=== PATIENT | male | born 1995 | race American Indian/Alaskan Native ===

== ENCOUNTER 2019-06-05 13:57 | Emergency (ER) | payer SELFPAY ==
--- NOTE | 2019-06-05 14:59 | Emergency Department Report ---
Blank Doc - Documentation Documentation: 23-year-old male that presents with right elbow pain and swelling after a fall. This initial assessment/diagnostic orders/clinical plan/treatment(s) is/are subject to change based on patient's health status, clinical progression and re- assessment by fellow clinical providers in the ED. Further treatment and workup at subsequent clinical providers discretion. Patient/guardians urged not to elope from the ED as their condition may be serious if not clinically assessed and managed. Initial orders include: 1- Patient sent to [facility] for further evaluation and treatment 2- xrays
--- NOTE | 2019-06-05 16:16 | XRay Report ---
RIGHT ELBOW, 3 VIEWS INDICATION: elbow pain and swelling. COMPARISON: None. IMPRESSION: Normal bone mineralization. No osseous abnormality or joint pathology is identified. Th ere is moderate to severe posterior soft tissue swelling at the level of the olecranon. No soft tissu e gas or foreign body. Olecranon bursitis Signer Name: Uvaldo Turner Jr, MD Signed: 06/05/2019 4:11 PM Workstation Name: [id number]
--- NOTE | 2019-06-05 17:11 | Emergency Department Report ---
Abscess Boil HPI - HPI Chief Complaint: Skin/Abscess/Foreign Body Stated Complaint: RT ELBOW ABCESS/PAIN Time Seen by Provider: 06/05/19 14:57 Duration: >1 Week (2 weeks) Location: Upper Extremity (right) Severity: Moderate History: Yes Pain, No Fever, No Purulent Drainage, No Numbness, No Foreign Body, No Previous History, No Insect Bite HPI: This is a 23-year-old -[place] male who presents to the emergency room with swelling and pain to right elbow for 2 weeks. Patient states swelling improved last week when he woke up yesterday morning he noticed increased swelling and pain. Patient reports pain with movement of right elbow. He also reports redness. He denies numbness or tingling, weakness, or injury. Home Medications: Previous Rx's Medication Instructions Recorded Last Taken Type Indomethacin 50 mg PO Q8H PRN #20 capsule 06/05/19 Unknown Rx methylPREDNISolone [Medrol 4MG 4 mg PO DAILY #1 tab.ds.pk 06/05/19 Unknown Rx DOSEPAK (21 tabs)] Allergies/Adverse Reactions: Allergies Allergy/AdvReac Type Severity Reaction Status Date / Time No Known Allergies Allergy Unverified 06/05/19 14:03 ED Review of Systems ROS: Stated complaint: RT ELBOW ABCESS/PAIN Other details as noted in HPI Constitutional: denies: chills, fever Respiratory: denies: cough, shortness of breath, wheezing Cardiovascular: denies: chest pain, palpitations Gastrointestinal: denies: abdominal pain, nausea, diarrhea Musculoskeletal: joint swelling (right elbow swelling and pain), arthralgia. denies: back pain Skin: denies: rash, lesions Neurological: denies: headache, weakness, paresthesias Psychiatric: denies: anxiety, depression ED Past Medical Hx - Past Medical History Previous Medical History?: No - Surgical History Past Surgical History?: No - Social History Smoking Status: Current Every Day Smoker Substance Use Type: None - Medications Home Medications: Home Medications Medication Instructions Recorded Confirmed Last Taken Type Indomethacin 50 mg PO Q8H PRN #20 capsule 06/05/19 Unknown Rx methylPREDNISolone [Medrol 4MG 4 mg PO DAILY #1 tab.ds.pk 06/05/19 Unknown Rx DOSEPAK (21 tabs)] ED Abscess Boil Physical Exam - Exam General: Vital signs noted. No distress. Alert and acting appropriately. Front/Back of Body, Lg (Color): 1 - Moderate swelling and pain over olecranon, tenderness, no erythema or surrounding cellulitis, limited range of motion secondary pain. Size: 2 cm Exam: Yes Tenderness, Yes Surrounding Cellulites/Erythema, Yes Normal Neurologic Exam, Yes Normal Circulation, No Fluctuance, No Lymphangitis, No Crepitation, No Heart Murmur ED Course Vital Signs 06/05/19 14:58 Temperature 97.9 F Pulse Rate 87 Respiratory 18 Rate Blood Pressure 151/91 O2 Sat by Pulse 100 Oximetry Critical care attestation.: If time is entered above; I have spent that time in minutes in the direct care of this critically ill patient, excluding procedure time. ED Medical Decision Making - Radiology Data Radiology results: report reviewed RIGHT ELBOW, 3 VIEWS INDICATION: elbow pain and swelling. COMPARISON: None. IMPRESSION: Normal bone mineralization. No osseous abnormality or joint pathology is identified. There is moderate to severe posterior soft tissue swelling at the level of the olecranon. No soft tissue gas or foreign body. Olecranon bursitis - Medical Decision Making This is a 23 y.o. male that presents with swelling over right olecranon area and pain with movement for 2 weeks. No significant past medical history. Patient is stable and examined by me. Xray of right elbow, moderate to severe posterior soft tissue swelling at the level of the olecranon. No soft tissue gas or foreign body. Olecranon bursitis. No acute signs of distress noted. At this time there are no signs of infection to be concerned of septic bursitis. Discussed plan to start prednisone taper and indomethacin 50 mg po tid with patient. Patient agrees to ED plan of care. Discharged home and follow up with PCP in 3 days. ED Disposition Clinical Impression: Right elbow pain, Olecranon bursitis of right elbow Disposition: TO HOME OR SELFCARE Is pt being admited?: No Condition: Stable Instructions: Elbow Bursitis (ED) Additional Instructions: Rest right arm. Apply warm compresses. Follow up with primary care provider in 2-3 days. Prescriptions: Indomethacin 50 mg PO Q8H PRN #20 capsule PRN Reason: Pain , Severe (7-10) methylPREDNISolone [Medrol 4MG DOSEPAK (21 tabs)] 4 mg PO DAILY #1 tab.ds.pk Referrals: [facility] [Outside] - 3-5 Days [facility] [Outside] - 3-5 Days [facility] [Outside] - 3-5 Days Time of Disposition: 17:24
[2019-06-05] MEDS ORDERED: traMADol 50 MG TAB PO ONE (17:27)
[2019-06-05 17:38] VITALS: BP 150/90
== END 2019-06-05 17:37 | disposition home or self-care (01) ==
LOC: ED 13:57
DX: M70.21 Olecranon bursitis, right elbow (principal); Y93.89 Activity, other specified; F17.200 Nicotine dependence, unspecified, uncomplicated

== ENCOUNTER 2020-05-15 00:12 | Emergency (ER) | payer SELFPAY | END 2020-05-15 02:33 | disposition left against medical advice (07) | LOC: ED 00:12 | DX: R07.89 Other chest pain (principal); Z53.21 Procedure and treatment not carried out due to patient leaving prior to being seen by health care provider ==